=== PATIENT | female | born 1955 | race Caucasian/White ===

== ENCOUNTER 2018-10-21 00:25 | Emergency (ER) | payer OTHER, MEDICAID ==
[~2018-10-21] VITALS: Ht 162.6 cm; Wt 80.0 kg
[~2018-10-21 00:25] MED LIST: CLON1TAB13 PO; LACT20SO12 PO; LORA1TAB PO; MIRT30TA5 PO; OMEP40CA6 PO; PARO-37 PO; QUET200T PO; RANI150T35 PO; TOPI100T PO; ZOLP10TA5 PO; [UNRECOGNIZED DRUG - CODE] PO
[2018-10-21 00:29] VITALS: BP 175/76; PULSE 78; RESP 18; Ht 162.6 cm; Wt 80.0 kg
[2018-10-21] MEDS ORDERED: KETOROLAC 15 MG INJ IM STA (03:26)
--- NOTE | 2018-10-21 07:23 | ERD ---
ER Documentation Chief Complaint Chief Complaint c/o pain/swelling back of scalp x 3 months. denies trauma HPI This is a 62-year-old Faroese-speaking female presents to the ED complaining of a mass to her occipital scalp x3 months. Patient states this mass has been progressively increasing in size. She does have some associated pain to the back of her head as well. She denies any fevers or chills. Patient is also complaining of generalized low back pain and upper neck pain. Denies any trauma. Denies any loss of bowel or bladder control. Denies any fevers or c hills. Denies any focal neurological deficits. She is able to ambulate without any pain. ROS All systems reviewed and are negative except as per history of present illness. Medications Home Meds Reported Medications Lactulose* (Cephulac*) 20 Gm/30 Ml Soln, 20 GM PO BID, ML 12/13/13 Lorazepam* (Lorazepam*) 1 Mg Tablet, 1 MG PO HS, TAB 12/13/13 Ranitidine Hcl* (Zantac*) 150 Mg Tablet, 150 MG PO HS, TAB 12/13/13 Omeprazole* (Omeprazole*) 40 Mg Capsule.dr, 40 MG PO DAILY, CAP 12/13/13 Fluvoxamine Maleate (Fluvoxamine Maleate) 100 Mg Tablet, 100 MG PO DAILY 09/08/11 Mirtazapine* (Mirtazapine*) 30 Mg Tablet, 30 MG PO HS 09/08/11 Quetiapine Fumarate* (Seroquel*) 200 Mg Tablet, 200 MG PO HS 09/08/11 Paroxetine Hcl* (Paroxetine*) 20 Mg Tablet, 20 MG PO DAILY 09/08/11 Clonazepam* (Clonazepam*) 1 Mg Tablet, 1 MG PO BID 09/08/11 Zolpidem Tartrate* (Zolpidem Tartrate*) 10 Mg Tablet, 10 MG PO DAILY 09/08/11 Topiramate* (Topamax*) 100 Mg Tablet, 100 MG PO DAILY 09/08/11 Allergies Allergies: Coded Allergies: No Known Drug Allergies (Verified Allergy, Unknown, 12/13/13) PMhx/Soc History of Surgery: Yes (UTERUS, OVARIES, TONCILS) Anesthesia Reaction: No Hx Neurological Disorder: No Hx Respiratory Disorders: No Hx Cardiac Disorders: No Hx Psychiatric Problems: No Hx Miscellaneous Medical Probl: No Hx Alcohol Use: No Hx Substance Use: No Hx Tobacco Use: Yes Smoking Status: Current every day smoker Physical Exam Vitals Vital Signs Date Temp Pulse Resp B/P (MAP) Pulse Ox O2 O2 Flow FiO2 Time Delivery Rate 10/21/18 97.6 78 18 175/76 99 00:29 (109) Physical Exam Const: No acute distress Head: Atraumatic. + Approximately 2-1/2 cm nodular cyst to the occipital scalp, mild tenderness to palpation, non-mobile. No fluctuance. No induration. No surrounding erythema Eyes: Normal Conjunctiva ENT: Normal External Ears, Nose and Mouth. Neck: Full range of motion. No meningismus.+ Right paracervical spinal tenderness palpation. Skin: No petechiae or rashes Back: No midline or flank tenderness. + Right paralumbar spinal tenderness to palpation. Ext: No cyanosis, or edema Neur: Awake and alert Psych: Normal Mood and Affect Results 24 hrs Current Medications Medications Dose Sig/Lilian Start Time Status Last (Trade) Ordered Route PRN Stop Time Admin Dose Reason Admin Ketorolac 15 mg ONCE STAT 10/21/18 DC 10/21/18 Tromethamine IM 03:26 03:36 (Toradol) 10/21/18 03:27 Procedures/MDM ED COURSE: The patient was given Toradol The medication was well tolerated and the patient had market improvement in symptoms. The patient remained stable throughout ED course. MEDICAL DECISION MAKING: This is a 62-year-old female who presents with a nodule to her occipital scalp. Exam is most consistent with a dermoid cyst. There is no evidence of abscess, cellulitis or deep space tissue infection. No need for any antibiotics at this time. Discussed with patient that she needs to see a non destructive tester for excision of the cyst. Patient also had some musculoskeletal back pain. This improved after IM Toradol. I have low suspicion for epidural abscess, cauda equina, cord compression, spinal tumor/mass or compression fracture. Patient was discharged home with strict return precautions discussed. PRESCRIPTIONS: None [facility] been advised to follow up with primary care in 1-2 days. Smoking Cessation Therapy: Pt. was lectured for greater than 3 minutes on the health risks of continued smoking and the benefits of cessation. Blood Pressure Assessment: Patient's blood pressure was elevated (>120/80) but appears stable without evidence of hypertension emergency or urgency. The patient was counseled about the risks of hypertension and urged to pursue outpatient monitoring and therapy within a week with their primary care physician. Departure Diagnosis: Primary Impression: Epidermoid cyst Additional Impression: Back strain Encounter type: initial encounter Qualified Codes: S39.012A - Strain of muscle, fascia and tendon of lower back, initial encounter Condition: Stable Patient Instructions: Sebaceous Cyst Referrals: [facility] YOU HAVE RECEIVED A MEDICAL SCREENING EXAM AND THE RESULTS INDICATE THAT YOU DO NOT HAVE A CONDITION THAT REQUIRES URGENT TREATMENT IN THE EMERGENCY DEPARTMENT. FURTHER EVALUATION AND TREATMENT OF YOUR CONDITION CAN WAIT UNTIL YOU ARE SEEN IN YOUR DOCTORS OFFICE WITHIN THE NEXT 1-2 DAYS. IT IS YOUR RESPONSIBILITY TO MAKE AN APPOINTMENT FOR FOLOW-UP CARE. IF YOU HAVE A PRIMARY DOCTOR --you should call your primary doctor and schedule and appointment IF YOU DO NOT HAVE A PRIMARY DOCTOR YOU CAN CALL OUR PHYSICIAN REFERRAL HOTLINE AT . IF YOU CAN NOT AFFORD TO SEE A PHYSICIAN YOU CAN CHOSE FROM THE FOLLOWING [facility] INSTITUTIONS: [facility] [id number] [place] [address] [facility] [address] [place] [address] [facility] + [facility] [address] [place] [address] Additional Instructions: This must be removed by her non destructive tester. See her primary care provider for referral to non destructive tester. Return here for any new or worsening symptoms. DAVID ACOSTA PA-C Oct 21, 2018 07:20
== END 2018-10-21 03:40 | disposition home or self-care (01) ==
LOC: FTE 00:25
DX: S39.012A Strain of muscle, fascia and tendon of lower back, initial encounter (principal); K09.8 Other cysts of oral region, not elsewhere classified; F17.210 Nicotine dependence, cigarettes, uncomplicated; X58.XXXA Exposure to other specified factors, initial encounter; Y92.9 Unspecified place or not applicable
CPT/HCPCS: 96372; 99284; J1885